=== PATIENT | male | born 1995 | race Caucasian/White ===

== ENCOUNTER 2017-10-03 14:09 | Emergency (ER) | payer SELFPAY ==
[2017-10-03] MEDS ORDERED: IPRATROPIUM/ALBUTEROL SULFATE 3 ML AMPUL.NEB NEB ONE ×2 (14:13→14:21)
[2017-10-03] MEDS ORDERED: methylPREDNISolone SOD SUCC 125 MG/2 ML VIAL IM ONE (14:21)
--- NOTE | 2017-10-03 14:21 | ED Physician Documentation ---
General Adult - HISTORIAN Historian: patient - HPI Stated Complaint: wheezing, sob, asthma Chief Complaint: General Adult Onset: days ago (1) Timing: still present Severity: moderate Further Comments: yes (Pt is a 21 yo male with hx asthma who presents with wheezing and sob. Pt had been living in [place], but has had wheezing after returning to [place]. Pt had nasal congestion and drainage yesterday and a slight sore throat.) - ROS CONST: no problems EYES/ENT: sore throat, nasal congestion CVS/RESP: shortness of breath, other (wheezing) GI/: none MS/SKIN/LYMPH: none - PAST HX Past History: asthma, other (septal defect repair age 6) Allergies/Adverse Reactions: Allergies Allergy/AdvReac Type Severity Reaction Status Date / Time No Known Allergies Allergy Verified 10/03/17 14:33 Home Medications: Ambulatory Orders Medication Instructions Recorded NK [NK] 10/03/17 - SOCIAL HX Smoking History: cigarettes - FAMILY HX Family History: No - VITAL SIGNS Vital Signs: Vital Signs Temp Pulse Resp BP Pulse Ox 128/56 08/27/13 21:44 - REVIEWED ASSESSMENTS Nursing Assessment Reviewed: Yes Vitals Reviewed: Yes Progress - Progress Progress: Duoneb HFN Solu-medrol 125 mg IM Albuterol HFN Pulmicort HFN Rx Z-thanh. Use as directed on package. Rx Albuterol (90 mcg/spray) MDI. 2 puffs every 4 to 6 hours as needed. Rx Prednisone 50 mg. Take one tablet once daily for 4 days. Start on 10/04/17. - EKG/XRAY/CT XRAY: chest (neg) ED Results Lab/Radiology - Orders Orders: ED Orders Category Date Time Status Ipratropium/Albuterol Sulfate [Duoneb] Med 10/03/17 14:13 Discontinued 3 ml NEB .STK-MED ONE General Adult Physical Exam - PHYSICAL EXAM GENERAL APPEARANCE: moderate distress EENT: pharynx normal NECK: normal inspection, supple. No: lymphadenopathy RESPIRATORY: wheezes CVS: heart sounds normal, tachycardia ABDOMEN: soft BACK: normal inspection SKIN: warm/dry, normal color EXTREMITIES: non-tender, normal range of motion, no evidence of injury, no edema NEURO: oriented X3, motor nml, sensation nml Discharge Clincal Impression: Asthma Qualifiers: Asthma severity: moderate Asthma persistence: unspecified Asthma complication type: uncomplicated Qualified Code(s): J45.909 - Unspecified asthma, uncomplicated URI (upper respiratory infection) Qualifiers: URI type: unspecified URI Qualified Code(s): J06.9 - Acute upper respiratory infection, unspecified Referrals: Primary Doctor,No [Primary Care Provider] - 2 Days Condition: Good Disposition: 01 HOME, SELF-CARE Decision to Admit: NO Decision Time: 16:15
[2017-10-03] MEDS ORDERED: ALBUTEROL SULFATE 2.5 MG/3 ML AMPUL.NEB NEB ONE (15:02)
[2017-10-03] MEDS ORDERED: BUDESONIDE 0.5MG/2ML AMPUL.NEB NEB ONE (15:29)
[2017-10-03] MEDS ORDERED: BUDESONIDE 0.5MG/2ML AMPUL.NEB NEB SCH (16:00)
--- NOTE | 2017-10-03 16:01 | Diagnostic Imaging Report ---
NELSY BLEVINS [facility] [address] [facility] [address] [place] [phone]. [phone] Report Submission Date: Oct 03, 2017 3:57:13 PM [employer] Patient Study Name: OMID DINH Date: Oct 03, 2017 3:47:08 PM [employer] Modality Type: CR Gender: M Description: CHEST : 97 Institution: [facility] Physician: NELSY BLEVINS Examination: PA and lateral chest. History: Evaluate lung blackwell. Comparison exam: None provided Findings: PA lateral chest demonstrate a normal cardiac and mediastinal silhouette. Mild indistinctness involving the right cardiac margin due to pectus excavatum identified on lateral view. No peripheral infiltrate. No blunting of the costophrenic margins. Osseous structures are otherwise appropriate for age. Impression: No acute pulmonary process. Electronically signed on Oct 03, 2017 3:57:13 PM [employer] by: Higinio MARROQUIN
[2017-10-03 16:17] VITALS: BP 120/72
== END 2017-10-03 16:12 | disposition home or self-care (01) ==
LOC: ED 14:09
DX: J45.909 Unspecified asthma, uncomplicated (principal); J06.9 Acute upper respiratory infection, unspecified
CPT/HCPCS: 71020; 94640; 94760; J2930; J7626; 96372; 99283

== ENCOUNTER 2018-03-31 02:40 | Emergency (ER) | payer SELFPAY ==
--- NOTE | 2018-03-31 03:07 | ED Physician Documentation ---
Altered Mental Status - HISTORIAN Historian: patient, parent - [facility] Chief Complaint: Altered Mental Status Additional Information: pt found by dad in yardabout 200am vomiting. he disappeared from home 3 days ago admits to multipld drugs alcohol. he states drugs included thc meth cocain acid etc. he is alert and cooperative but memory is impaired somewhat. father stated he had lost his job at [employer] due to unexcused absence. he is normally cooperative alert funny and smart accd to dad. dad also states he inherets substance abuse from estranged mother who does similar Onset: days ago (3) Last known Well Date: 03/11/18 Last Known Well Time: 12:00 Last known Well Code/Unknown Code: Unknown Character of Altered Mental Status: trouble concentrating, other (admits doesent rember much of what happened but recalls multi substance abuse). denies: disoriented, confused, combative Context: drug abuse, drug overdose. denies: chronic dementia, found unresponsive, given D50 [employer], head trauma, infection, head injury, other family sick, new medications Cognition is Usually: alert, oriented x3, alert but confused Gait is Usually: walks w/o assistance Associated Symptoms: none Further Comments: no - ROS EYES/ENT: denies: problems with vision, sore throat, trouble swallowing CVS/RESP: none. denies: chest pain, shortness of breath, palpitations, cough GI/: abdominal pain (slight genl nd nauseated) MS/SKIN/LYMPH: none. denies: leg swelling, rash, swollen glands, recent injury - PAST HX Past History: other (asthma) Other History: asthma Surgeries/Procedures: other (heart as child) Allergies/Adverse Reactions: Allergies Allergy/AdvReac Type Severity Reaction Status Date / Time No Known Allergies Allergy Verified 03/31/18 03:47 Home Medications: Ambulatory Orders Medication Instructions Recorded NK [NK] 10/03/17 - SOCIAL HX Smoking History: cigarettes Alcohol Use: occasionally Drug Use: cocaine, marijuana, methamphetamines, other - FAMILY HX Family History: no significant history (excet mom has multi substance abuse) - VITAL SIGNS Vital Signs: Vital Signs Temp Pulse Resp BP Pulse Ox 99.4 F 58 L 12 135/79 95 03/31/18 02:40 03/31/18 05:24 03/31/18 02:40 03/31/18 02:40 03/31/18 05:24 - REVIEWED ASSESSMENTS Nursing Assessment Reviewed: Yes Vitals Reviewed: Yes ED Results Lab/Radiology - Lab Results Lab Results: Lab Results 03/31/18 03/31/18 03/31/18 03:50 03:27 03:21 WBC RBC Hgb Hct MCV MCH MCHC RDW Plt Count Neut % (Auto) Lymph % (Auto) [place] % (Auto) Eos % (Auto) Baso % (Auto) Neut # (Auto) Lymph # (Auto) [place] # (Auto) Eos # (Auto) Baso # (Auto) Reactive Lymphs % Reactive Lymphs # PT INR Sodium 139 mmol/L mmol/L (136-145) Potassium 3.7 mmol/L mmol/L (3.5-5.1) Chloride 101 mmol/L mmol/L (98-107) Carbon Dioxide 26 mmol/L mmol/L (22-30) BUN 16 mg/dL mg/dL (9-20) Creatinine 0.80 mg/dL mg/dL (0.66-1.25) Est GFR ( Amer) > 60 (60 - ) Est GFR (Non-Af Amer) > 60 (60 - ) Glucose 145 mg/dL H mg/dL (74-106) Calcium 9.3 mg/dL mg/dL (8.4-10.2) Total Bilirubin 0.5 mg/dL mg/dL (0.2-1.3) AST 41 U/L U/L (15-46) ALT 35 U/L U/L (13-69) Alkaline Phosphatase 82 U/L U/L (38-126) Total Protein 8.3 g/dL H g/dL (6.3-8.2) Albumin 4.8 g/dL g/dL (3.5-5.0) Acetaminophen < 4.0 ug/mL L ug/mL (10-30) Ethyl Alcohol 5.7 mg/dL mg/dL (0.0-10.0) 03/31/18 03/31/18 03:21 03:21 WBC 14.20 K/ul H K/ul (4.00-12.00) RBC 4.91 M/ul M/ul (3.90-5.20) Hgb 14.8 g/dL g/dL (12.0-18.0) Hct 44.4 % % (37.0-53.0) MCV 90.4 fl fl (80.0-100.0) MCH 30.1 pg pg (28.0-34.0) MCHC 33.3 g/dL g/dL (30.0-36.0) RDW 12.4 % % (11.3-14.3) Plt Count 288 K/mm3 K/mm3 (130-400) Neut % (Auto) 85.8 % H % (39.0-79.0) Lymph % (Auto) 8.5 % L % (16.0-50.0) [place] % (Auto) 3.6 % % (0.0-11.0) Eos % (Auto) 1.3 % % (0.0-6.8) Baso % (Auto) 0.3 (0.0-1.5) Neut # (Auto) 12.2 # k/uL H # k/uL (1.4-7.7) Lymph # (Auto) 1.2 # k/uL # k/uL (0.6-4.0) [place] # (Auto) 0.5 # k/uL # k/uL (0.0-0.9) Eos # (Auto) 0.2 # k/uL # k/uL (0.0-0.6) Baso # (Auto) 0.0 # k/uL # k/uL (0.0-0.5) Reactive Lymphs % 0.5 % % (0.0-5.0) Reactive Lymphs # 0.1 # k/uL # k/uL (0.0-0.8) PT 1.1 Seconds L Seconds (9.4-11.6) INR 1.06 (0.9-1.2) Sodium Potassium Chloride Carbon Dioxide BUN Creatinine Est GFR ( Amer) Est GFR (Non-Af Amer) Glucose Calcium Total Bilirubin AST ALT Alkaline Phosphatase Total Protein Albumin Acetaminophen Ethyl Alcohol - Orders Orders: ED Orders Category Date Time Status Assess pulse oximetry Q30M Care 03/31/18 03:18 Active Continuous EKG monitoring Q30M Care 03/31/18 03:[address] BRAIN W/O CONTRAST Stat Exams 03/31/18 Completed ACETAMINOPHEN LEVEL Stat Lab 03/31/18 03:50 Completed ALCOHOL MEDICAL USE ONLY Routine Lab 03/31/18 03:21 Completed CBC/PLATELET/DIFF Routine Lab 03/31/18 03:21 Completed CMP [CMP] Routine Lab 03/31/18 03:27 Completed DRUG SCREEN URINE MEDICAL ONLY Routine Lab 03/31/18 Ordered PT-INR Routine Lab 03/31/18 03:21 Completed URINALYSIS Routine Lab 03/31/18 Ordered 0.9 % Sodium Chloride [Normal Saline] 1,000 ml Med 03/31/18 03:18 Discontinued IV .STK-MED 0.9 % Sodium Chloride [Normal Saline] 1,000 ml Med 03/31/18 03:17 Discontinued IV Q1H Chem Sticks Med 03/31/18 07:30 Ordered 1 each MC CHEMQ Ondansetron HCl/Pf [Zofran 4 mg/2 ml] Med 03/31/18 03:19 Discontinued 4 mg IVP NOW ONE EKG WITH COMPARISON Stat Ther 03/31/18 Ordered Altered Mental Status Physical - Physical Exam General Appearance: mild distress Neuro/Psych: other (poor memory of incident states is nauseated but quied conservative polite) no evidence of acute CVA, eyes open. No: mood/affect nml, abnml respond to command forehead spared. No: facial palsy, forehead involved, tongue deviation (R), tongue deviation (L) Cerebellar Exam: nml gait (into ed w/father step mother w/o difficulty) Peripheral Exam: motor nml, reflexes nml HEENT: airway intact, scleral icterus. No: pale conjunctivae, unequal pupils, handles secretions poorly, pharyngeal erythema Discharge Clincal Impression: subsstancde abuse--"N-BOME", THC Referrals: Teddy Shea MD [Primary Care Provider] - 2 Days Comments: PT NOW ALERT ORIENTED VS STABLE FAMILY WILL TAKE PT HOME Condition: Fair Disposition: 01 HOME, SELF-CARE Decision to Admit: NO Decision Time: 05:33
[2018-03-31] MEDS ORDERED: 0.9 % SODIUM CHLORIDE 1,000 ML IV ONE ×2 (03:17→03:18)
[2018-03-31] MEDS ORDERED: ONDANSETRON HCL/PF 4 MG/ 2ML VIAL IVP ONE (03:19)
[2018-03-31 03:34] LABS: BASOPHILS % 0.3 (0.0-1.5); EOSINOPHILS % 1.3 % (0.0-6.8); MEAN CORPUSCULAR HEMOGLOBIN 30.1 pg (28.0-34.0); MEAN CORPUSCULAR VOLUME 90.4 fl (80.0-100.0); MONOCYTES % 3.6 % (0.0-11.0); NEUTROPHILS # 12.2 # k/uL (1.4-7.7)
[2018-03-31 03:41] LABS: eGFR (African) > 60; eGFR (Non-African) > 60
--- NOTE | 2018-03-31 04:58 | Diagnostic Imaging Report ---
[facility] [address] [facility] [address] [place] [id number]. [id number] Report Submission Date: Mar 31, 2018 4:56:44 AM CDT Patient Study Name: OMID DINH Date: Mar 31, 2018 4:38:21 AM CDT Modality Type: CT\SR Gender: M Description: CT BRAIN W/O CONTRAST : 97 Institution: [facility] Physician: NAYA PASCUAL Computed tomography head without contrast History: Fall and altered mental status Findings: Transverse brain sections are obtained without contrast revealing normal-sized ventricles and sulci. Kenney white differentiation is intact. There is no intracranial hemorrhage, mass effect, fluid collection. The skull is intact. Visualized sinuses and mastoid air cells are clear. The cerebellar tonsils descend 3 mm below the foramen magnum. Impression: 1. 3 mm of cerebellar tonsillar ectopia. 2. No acute abnormality. Electronically signed on Mar 31, 2018 4:56:44 AM CDT by: Toñito MARROQUIN
[2018-03-31 05:50] VITALS: BP 130/58
[2018-03-31 06:34] LABS: APPEARANCE,URINE CLEAR (CLEAR); COLOR,URINE AMBER (YELLOW); OCCULT BLOOD,URINE NEGATIVE (NEGATIVE); UROBILINOGEN URINE 0.2 Eu (0.2-1.0)
[2018-03-31 06:36] LABS: CANNABINOIDS NON NEGATIVE ng/mL (< 50); METHYLENEDIOXYMETHAMPHETAMINE NEGATIVE ng/mL (<500)
== END 2018-03-31 05:35 | disposition home or self-care (01) ==
LOC: ED 02:40
DX: F19.19 Other psychoactive substance abuse with unspecified psychoactive substance-induced disorder (principal); F12.10 Cannabis abuse, uncomplicated
CPT/HCPCS: 70450; 80053; 80320; 80377; 81002; 85025; 85610; 96366; 96374; 99285; J7030; G0480; G0481; S1016